=== PATIENT | female | born 1990 | race Caucasian/White ===

== ENCOUNTER 2017-01-04 19:10 | Emergency (ER) | payer MEDICAID, OTHER ==
[~2017-01-04] VITALS: Ht 170.2 cm; Wt 54.5 kg
[2017-01-04 19:12] VITALS: BP 133/70; PULSE 101; RESP 16; O2SAT 100
--- NOTE | 2017-01-04 20:10 | ED.REPORT ---
HPI-Dental/Mouth Prob Date of Service Jan 04, 2017 ED Provider: Khris George MD Nursing Notes Stated Complaint: SWOLLEN JAW, TOOTH PAIN Chief Complaint: Dental Nursing Notes Reviewed: Yes Allergies: Coded Allergies: No Known Allergies (Unverified , 01/04/17) General Time Seen by MD: 20:09 Chief Complaint Jaw swelling, Tooth pain Hx Obtained From: Patient Arrived By: Walk-in Past Medical History Family History Noncontributory Social History Other Social History: Local resident Ambulatory Status Independent Review of Systems Review of Systems Note: +jaw swelling Ears / Nose / Throat: Reports: Toothache Complete sys rev & neg: except as marked. Physical Exam Initial Vital Signs Vital Signs (First) Date Time Temp Pulse Resp B/P Pulse Ox O2 Delivery O2 Flow Rate FiO2 01/04/17 19:12 36.2 101 16 133/70 100 Room Air Initial VS: Reviewed Re-Eval/Medical Decision Source of Hx: Old records Counseled Regarding: Diagnosis, Need for follow-up, When/why to return to ED Discharge & Departure Disposition: Home Discharge Condition All VS Reviewed: Yes Condition: Stable Additional Instructions: Thank you for seeking care at the emergency room. It is difficult for us to make definitive diagnoses in the ED but we believe that you are experiencing . Our primary goal today in the ED was to evaluate you for any life-threatening conditions. Your evaluation was reassuring. You will be discharged with a prescription for . You should follow-up with your primary doctor in the next week. You should return to the ED immediately if you develop fevers, vomiting, cough, shortness of breath, chest pain, lightheadedness, weakness or any other concerning signs or symptoms. Thank you for letting us partake in your care today. Referrals: [facility] Scribe Attestation Portions of this note were transcribed by Deidra Crenshaw. I, Dr. George personally performed the history, physical exam and medical decision-making; I reviewed and confirmed the accuracy of the information in the transcribed note. Signed by: Hermes Harrison, 01/04/2017 at [Time]. Khris George MD Jan 04, 2017 20:10 Deidra Crenshaw Jan 04, 2017 20:24
== END 2017-01-04 20:49 | disposition left against medical advice (07) ==
LOC: SED 19:10
DX: Z53.21 Procedure and treatment not carried out due to patient leaving prior to being seen by health care provider (principal)